=== PATIENT | male | born 1950 | race Caucasian/White ===

== ENCOUNTER 2018-09-28 13:23 | Inpatient (IN) | payer MEDICARE ==
[~2018-09-28] VITALS: Ht 175.3 cm; Wt 79.4 kg
--- NOTE | 2018-09-28 13:29 | ER Report ---
History and Physical Time Seen By MD: 13:29 HPI/ROS CHIEF COMPLAINT: right lower abdominal pain HISTORY OF PRESENT ILLNESS: patient is a 68 year old male presenting to the ED with right lower abdominal pain. Patient states he woke up this morning with the pain in the mid abdomen. Pain is now more focused in the right lower abdomen. Pain is sharp and constant. 9/10 to 10/10. Patient has nausea and had 4 episode of vomiting this morning. Patient went to urgent care and was then sent to the ED. REVIEW OF SYSTEMS: Constitutional: [No fever or chills.] Eyes: [No discharge.] [No vision changes.] ENT: [No sore throat.] [No congestion.] [No hearing changes.] Cardiovascular: [No chest pain.] [No palpitations.] Respiratory: [No cough.] [No shortness of breath.] Gastrointestinal: [No abdominal pain.] [No nausea or vomiting.] [No change in bowel movements.] [No blood in the stool or melena.] Genitourinary: [No dysuria.] [No hematuria.] [No frequency] Musculoskeletal: [No back pain.] [No extremity pain.] Skin: [No rashes.] [No bruising.] Neurological: [No numbness.] [No weakness.] [No headache.] Allergies: Coded Allergies: No Known Drug Allergies (Unverified , 09/28/18) Home Meds Reported Medications Simvastatin (SIMVASTATIN) 20 Mg Tablet, 10 MG PO HS, TAB 09/28/18 Diclofenac Sodium (VOLTAREN-XR) 100 Mg Tab.er.24h, 150 MG PO QDAY, TAB 09/28/18 Past Medical/Surgical History Patient has a past medical history of hypercholesterolemia, arthritis, and back pain. Patient denies any surgical history. Reviewed Nurses Notes: Yes Constitutional Vital Sign - Last 24 Hours 09/28/18 09/28/18 13:28 14:18 Temp 98.1 Pulse 70 Resp 24 B/P (MAP) 145/87 Pulse Ox 98 O2 Delivery Room Air O2 Flow Rate 2.0 Physical Exam General Appearance: The patient is alert. No immediate need for airway protection. Non-toxic in appearance. Patient appears to be in pain. Eyes: Pupils are equal, round. Reactive to light. No pallor, injection or ic terus. ENT: Mucous membranes are moist. Normal oral mucosa. Posterior oropharynx is normal. Normal nasal mucosa. Neck: Supple and non tender. No lymphadenopathy. Respiratory: Breathing easily and unlabored. Lungs are clear to auscultation. There are no retractions or accessory muscle use. Cardiovascular: Regular rate and rhythm. No murmurs, gallops or rubs. Normal capillary refill. No edema. Gastrointestinal: Abdomen is tender to palpation. Postive McBurney's and Rovsing signs. Nondistended. No rebound or guarding. No masses or organomegaly. Normal active bowel sounds. No costovertebral angle tenderness with percussion. Neurological: Alert and oriented x3. Skin: Warm and dry. No rashes. Musculoskeletal: Extremities are nontender. Full range of motion. No tenderness in palpation of the cervical, thoracic and lumbar spine. DIFFERENTIAL DIAGNOSIS: After history and physical exam, differential diagnosis was considered for appendicitis, bowel obstruction, diverticulitis. Medical Decision Making Data Points Result Diagram: 09/28/18 1340 09/28/18 1340 Laboratory Hematology Test 09/28/18 13:40 09/28/18 15:35 Red Blood Count 5.12 M/uL (4.00-5.60) Mean Corpuscular Volume 95.8 fL (80.0-96.0) Mean Corpuscular Hemoglobin 32.7 pg (26.0-33.0) Mean Corpuscular Hemoglobin Concent 34.2 g/dL (32.0-36.0) Red Cell Distribution Width 13.8 % (11.5-14.5) Mean Platelet Volume 9.4 fL (7.2-11.1) Neutrophils (%) (Auto) 90.2 % (39.4-72.5) Lymphocytes (%) (Auto) 6.6 % (17.6-49.6) Monocytes (%) (Auto) 2.9 % (4.1-12.4) Eosinophils (%) (Auto) 0.0 % (0.4-6.7) Basophils (%) (Auto) 0.3 % (0.3-1.4) Nucleated RBC Relative Count (auto) 0.0 /100WBC Neutrophils # (Auto) 11.4 K/uL (2.0-7.4) Lymphocytes # (Auto) 0.8 K/uL (1.3-3.6) Monocytes # (Auto) 0.4 K/uL (0.3-1.0) Eosinophils # (Auto) 0.0 K/uL (0.0-0.5) Basophils # (Auto) 0.0 K/uL (0.0-0.1) Nucleated RBC Absolute Count (auto) 0.00 K/uL Sodium Level 139 mmol/L (137-145) Potassium Level 3.6 mmol/L (3.5-5.0) Chloride Level 102 mmol/L (98-107) Carbon Dioxide Level 22 mmol/L (22-30) Blood Urea Nitrogen 18 mg/dl (9-21) Creatinine 0.80 mg/dl (0.66-1.25) Glomerular Filtration Rate Calc > 60.0 Random Glucose 168 mg/dl (75-110) Calcium Level 9.7 mg/dl (8.4-10.2) Total Bilirubin 1.0 mg/dl (0.2-1.3) Aspartate Amino Transf (AST/SGOT) 35 U/L (0-35) Alanine Aminotransferase (ALT/SGPT) 45 U/L (0-56) Alkaline Phosphatase 67 U/L (0-126) Total Protein 8.1 g/dl (6.3-8.2) Albumin 5.1 g/dl (3.5-5.0) Amylase Level 63 U/L (0-110) Lipase 76 U/L (23-300) Urine Color Yellow Urine Clarity Clear Urine pH 7.0 pH (4.8-9.5) Urine Specific Linneus 1.050 Urine Protein Negative mg/dL (NEGATIVE) Urine Glucose (UA) Negative mg/dL (NEGATIVE) Urine Ketones 20 mg/dL (NEGATIVE) Urine Blood Negative (NEGATIVE) Urine Nitrite Negative (NEGATIVE) Urine Bilirubin Negative (NEGATIVE) Urine Urobilinogen Negative mg/dL (0.2-1.9) Urine Leukocyte Esterase Negative (NEGATIVE) Urine RBC 2 /HPF (0-2/HPF) Urine WBC 1 /HPF (0-5/HPF) Urine Squamous Epithelial Cells None /LPF (</=FEW) Urine Bacteria Negative /HPF (NONE-FEW) Urine Mucus None /HPF (NONE-FEW) Chemistry Test 09/28/18 13:40 09/28/18 15:35 White Blood Count 12.6 k/uL (4.5-11.0) Red Blood Count 5.12 M/uL (4.00-5.60) Hemoglobin 16.7 g/dL (14.0-18.0) Hematocrit 49.0 % (42.0-52.0) Mean Corpuscular Volume 95.8 fL (80.0-96.0) Mean Corpuscular Hemoglobin 32.7 pg (26.0-33.0) Mean Corpuscular Hemoglobin Concent 34.2 g/dL (32.0-36.0) Red Cell Distribution Width 13.8 % (11.5-14.5) Platelet Count 174 K/uL (150-450) Mean Platelet Volume 9.4 fL (7.2-11.1) Neutrophils (%) (Auto) 90.2 % (39.4-72.5) Lymphocytes (%) (Auto) 6.6 % (17.6-49.6) Monocytes (%) (Auto) 2.9 % (4.1-12.4) Eosinophils (%) (Auto) 0.0 % (0.4-6.7) Basophils (%) (Auto) 0.3 % (0.3-1.4) Nucleated RBC Relative Count (auto) 0.0 /100WBC Neutrophils # (Auto) 11.4 K/uL (2.0-7.4) Lymphocytes # (Auto) 0.8 K/uL (1.3-3.6) Monocytes # (Auto) 0.4 K/uL (0.3-1.0) Eosinophils # (Auto) 0.0 K/uL (0.0-0.5) Basophils # (Auto) 0.0 K/uL (0.0-0.1) Nucleated RBC Absolute Count (auto) 0.00 K/uL Glomerular Filtration Rate Calc > 60.0 Calcium Level 9.7 mg/dl (8.4-10.2) Total Bilirubin 1.0 mg/dl (0.2-1.3) Aspartate Amino Transf (AST/SGOT) 35 U/L (0-35) Alanine Aminotransferase (ALT/SGPT) 45 U/L (0-56) Alkaline Phosphatase 67 U/L (0-126) Total Protein 8.1 g/dl (6.3-8.2) Albumin 5.1 g/dl (3.5-5.0) Amylase Level 63 U/L (0-110) Lipase 76 U/L (23-300) Urine Color Yellow Urine Clarity Clear Urine pH 7.0 pH (4.8-9.5) Urine Specific Linneus 1.050 Urine Protein Negative mg/dL (NEGATIVE) Urine Glucose (UA) Negative mg/dL (NEGATIVE) Urine Ketones 20 mg/dL (NEGATIVE) Urine Blood Negative (NEGATIVE) Urine Nitrite Negative (NEGATIVE) Urine Bilirubin Negative (NEGATIVE) Urine Urobilinogen Negative mg/dL (0.2-1.9) Urine Leukocyte Esterase Negative (NEGATIVE) Urine RBC 2 /HPF (0-2/HPF) Urine WBC 1 /HPF (0-5/HPF) Urine Squamous Epithelial Cells None /LPF (</=FEW) Urine Bacteria Negative /HPF (NONE-FEW) Urine Mucus None /HPF (NONE-FEW) Urinalysis Test 09/28/18 15:35 Urine Color Yellow Urine Clarity Clear Urine pH 7.0 pH (4.8-9.5) Urine Specific Linneus 1.050 Urine Protein Negative mg/dL (NEGATIVE) Urine Glucose (UA) Negative mg/dL (NEGATIVE) Urine Ketones 20 mg/dL (NEGATIVE) Urine Blood Negative (NEGATIVE) Urine Nitrite Negative (NEGATIVE) Urine Bilirubin Negative (NEGATIVE) Urine Urobilinogen Negative mg/dL (0.2-1.9) Urine Leukocyte Esterase Negative (NEGATIVE) Urine RBC 2 /HPF (0-2/HPF) Urine WBC 1 /HPF (0-5/HPF) Urine Squamous Epithelial Cells None /LPF (</=FEW) Urine Bacteria Negative /HPF (NONE-FEW) Urine Mucus None /HPF (NONE-FEW) EKG/Imaging Imaging Computed tomograpy abdomen and pelvis with IV contrast Indication: Abdominal pain. Right lower quadrant and periumbilical pain. Comparison: None available. . Technique: Transaxial computed tomography images were obtained through the abdomen and pelvis following the injection of nonionic iodinated intravenous contrast. Reformatted coronal and sagittal images were also obtained. One of the following dose optimization techniques was utilized in the performance of this exam: Automated exposure control; adjustment of the mA and/or kV according to the patient's size; or use of an iterative re construction technique. Specific details can be referenced in the facility's radiology CT exam operational policy. Contrast: 75 ml of Isovue-370 IV contrast. Findings: Lower lung whitman: Minimal atelectasis involves both lower lobes. Peripheral septal line thickening is seen which may reflect a component of chronic scarring or interstitial lung disease. Small peripheral nodule in the right middle lobe measures 4-5 mm in size on image 4. Liver: No focal parenchymal abnormality of the liver. Biliary: Gallbladder appears unremarkable as well as the intra and extra hepatic biliary system. Pancreas: Normal appearance. Spleen: Normal appearance. Adrenal glands: There is thickening of the right adrenal gland which maintains its adreniform shape. There is thickening of the left adrenal gland with a suspected nodule at the junction of the medial and lateral limbs which measures 1.3 cm. Kidneys / retroperitoneum: There are small left-sided renal cysts identified. Small exophytic low-attenuation lesion involves the right kidney which statistically represents a small cyst. No stones or hydronephrosis. Bowel / peritoneum / mesenteries: There are scattered sigmoid colon and descending colon diverticula. No evidence of diverticulitis. There are a few right-sided diverticula as well. Appendix is normal. Within the central pelvis and the low abdomen, there are are multiple continuous dilated small bowel loops. These are arranged in a C-shaped pattern and there is swirling within the mesentery centrally. 2 transition points are identified. Findings are highly suspicious for a closed loop obstruction either due to adhesions or due to an internal hernia. Surgical consultation is necessary. No evidence of pneumatosis or free air. There is a small amount of free pelvic fluid. There is an intermediate hiatal hernia. Lymph node assessment: No pathologic adenopathy identified. Pelvic structures: Mild prostatic enlargement. Vessels: Moderately diffuse atherosclerotic calcifications seen throughout a nonaneurysmal abdominal aorta and branches. Musculoskeletal / Body wall: Moderate to severe multilevel degenerative disc disease involves the spine. There is bilateral hip joint osteoarthritis. There are findings consistent with prior right inguinal hernia repair. IMPRESSION: 1. CT findings highly suspicious for a closed loop small bowel obstruction within the central pelvis as detailed above. This could reflect adhesions or an internal hernia. Surgical consultation is necessary. 2. No evidence of pneumatosis or free air. There is a small amount of free pe lvic fluid. 3. Colonic diverticulosis without diverticulitis. 4. 13 mm indeterminate left adrenal gland nodule. 5. Findings most consistent with renal cysts. 6. Hiatal hernia. 7. Peripheral 4-5 mm right middle lobe nodule. Follow-up recommendations as discussed below. FLEISCHNER SOCIETY FOLLOW-UP GUIDELINES FOR NEWLY DETECTED INCIDENTAL NODULES IN PERSONS 35 YEARS OF AGE OR OLDER. *These recommendations do NOT apply to lung cancer screening, patients with immunosuppres ion or patients with a known primary malignancy. NODULE(S) IDENTIFIED ON INCOMPLETE CHEST If nodule size is < 6 mm: * No further investigation on the basis of the estimated low risk of malignancy.If nodule size is 6-8 mm: * Follow-up CT of the complete chest after 3-12 months (depending on clinical risk), to confirm stability and to evaluate additional findings. If nodule size is > 8 mm or otherwise very suspicious: * Dedicated complete thoracic CT recommended. LOW RISK PATIENT: Minimal or absent history of tobacco use and of other known risk factors. HIGH RISK PATIENT: Tobacco use, family history of lung cancer, upper pulmonary lobe location of nodule, presence of emphysema, pulmonary fibrosis, older age. Jose Martin H, Neville DP, Remi JM, et al. Guidelines for Management of Incidental Pulmonary Nodules Detected on CT Images: From the Fleischner Society 2017. Radiology. Results were discussed with SHANNAN COULTER at 09/28/2018 3:38 PM. Report Dictated By: Eleuterio Abrams at 09/28/2018 3:19 PM ED Course/Re-evaluation Clinical Indication for ER IV: Hydration, IV Access ED Course After initial evaluation, blood work, urinalysis and CT scan ordered. Given Dilaudid 0.5mg IV and Zofran 4mg IV. Moderate pain relief, repeated Dilaudid 0.5mg IV. CT scan obtained. See above, shows closed loop small bowel obstruction. Reviewed findings with the patient and his . Discussed with Dr. Rodriguez who came to see the patient and admitted with plans for surgery. Decision to Disposition Date: Sep 28, 2018 Decision to Disposition Time: 16:05 Depart Departure Latest Vital Signs Vital Signs Date Time Temp Pulse Resp B/P (MAP) Pulse Ox O2 Delivery O2 Flow Rate FiO2 09/28/18 14:18 2.0 09/28/18 13:28 98.1 70 24 145/87 98 Room Air Impression: Primary Impression: Small bowel obstruction Condition: Condition Unchanged Disposition: Admitted from ER YFN,SHANNAN Dickinson MD Sep 28, 2018 13:29
[2018-09-28] MEDS ORDERED: DICL100T54 PO (13:32)
[2018-09-28] MEDS ORDERED: SIMV-49 PO (13:32)
[2018-09-28] MEDS ORDERED: ONDANSETRON 4 MG/2 ML VIAL IVP ONE (13:50)
[2018-09-28] MEDS ORDERED: NS(*) 0.9% 1000 ML BAG 1,000 ML IV ONE (13:50)
[2018-09-28] MEDS ORDERED: HYDROMORPHONE HCL 1 MG/ML SYRINGE IVP ONE ×3 (13:50→19:20)
[2018-09-28 14:00] LABS: PLATELET COUNT, AUTOMATED 174 K/uL (150-450)
[2018-09-28] MEDS ORDERED: HYDROMORPHONE HCL 1 MG/ML SYRINGE ONE (14:05)
[2018-09-28] MEDS ORDERED: IOPAMIDOL 76% 150 ML INFUS BTL 150 ML ONE (14:16)
--- NOTE | 2018-09-28 15:45 | RADIOLOGY IMAGING REPORT ---
FACILITY: [facility] [place] PATIENT NAME: Tim Young : 1950 MR: [id number] V: [id number] EXAM DATE: ORDERING PHYSICIAN: SHANNAN COULTER TECHNOLOGIST: [place] [facility] [place]: Tim Young : 1950 Visit/Account:[id number] Date of Sevice: 09/28/2018 Computed tomograpy abdomen and pelvis with IV contrast Indication: Abdominal pain. Right lower quadrant and periumbilical pain. Comparison: None available. . Technique: Transaxial computed tomography images were obtained through the abdomen and pelvis follo wing the injection of nonionic iodinated intravenous contrast. Reformatted coronal and sagittal image s were also obtained. One of the following dose optimization techniques was utilized in the performance of this exam: Autom ated exposure control; adjustment of the mA and/or kV according to the patient's size; or use of an i terative reconstruction technique. Specific details can be referenced in the facility's radiology C T exam operational policy. Contrast: 75 ml of Isovue-370 IV contrast. Findings: Lower lung whitman: Minimal atelectasis involves both lower lobes. Peripheral septal line thickening i s seen which may reflect a component of chronic scarring or interstitial lung disease. Small peripher al nodule in the right middle lobe measures 4-5 mm in size on image 4. Liver: No focal parenchymal abnormality of the liver. Biliary: Gallbladder appears unremarkable as well as the intra and extra hepatic biliary system. Pancreas: Normal appearance. Spleen: Normal appearance. Adrenal glands: There is thickening of the right adrenal gland which maintains its adreniform shape. There is thickening of the left adrenal gland with a suspected nodule at the junction of the medial a nd lateral limbs which measures 1.3 cm. Kidneys / retroperitoneum: There are small left-sided renal cysts identified. Small exophytic low-att enuation lesion involves the right kidney which statistically represents a small cyst. No stones or h ydronephrosis. Bowel / peritoneum / mesenteries: There are scattered sigmoid colon and descending colon diverticula. No evidence of diverticulitis. There are a few right-sided diverticula as well. Appendix is normal. Within the central pelvis and the low abdomen, there are are multiple continuous dilated small bowel loops. These are arranged in a C-shaped pattern and there is swirling within the mesentery centrally. 2 transition points are identified. Findings are highly suspicious for a closed loop obstruction eit her due to adhesions or due to an internal hernia. Surgical consultation is necessary. No evidence of pneumatosis or free air. There is a small amount of free pelvic fluid. There is an intermediate hiatal hernia. Lymph node assessment: No pathologic adenopathy identified. Pelvic structures: Mild prostatic enlargement. Vessels: Moderately diffuse atherosclerotic calcifications seen throughout a nonaneurysmal abdominal aorta and branches. Musculoskeletal / Body wall: Moderate to severe multilevel degenerative disc disease involves the spi ne. There is bilateral hip joint osteoarthritis. There are findings consistent with prior right inguinal hernia repair. IMPRESSION: 1. CT findings highly suspicious for a closed loop small bowel obstruction within the central pelvis as detailed above. This could reflect adhesions or an internal hernia. Surgical consultation is thai brumfield. 2. No evidence of pneumatosis or free air. There is a small amount of free pelvic fluid. 3. Colonic diverticulosis without diverticulitis. 4. 13 mm indeterminate left adrenal gland nodule. 5. Findings most consistent with renal cysts. 6. Hiatal hernia. 7. Peripheral 4-5 mm right middle lobe nodule. Follow-up recommendations as discussed below. FLEISCHNER SOCIETY FOLLOW-UP GUIDELINES FOR NEWLY DETECTED INCIDENTAL NODULES IN PERSONS 35 YEARS OF AGE OR OLDER. *These recommendations do NOT apply to lung cancer screening, patients with immunosuppres ion or veronica ents with a known primary malignancy. NODULE(S) IDENTIFIED ON INCOMPLETE CHEST If nodule size is < 6 mm: * No further investigation on the basis of the estimated low risk of malignancy.If nodule size is 6- 8 mm: * Follow-up CT of the complete chest after 3-12 months (depending on clinical risk), to confirm stab ility and to evaluate additional findings. If nodule size is > 8 mm or otherwise very suspicious: * Dedicated complete thoracic CT recommended. LOW RISK PATIENT: Minimal or absent history of tobacco use and of other known risk factors. HIGH RISK PATIENT: Tobacco use, family history of lung cancer, upper pulmonary lobe location of nodul e, presence of emphysema, pulmonary fibrosis, older age. Jose Martin H, Neville DP, Remi JM, et al. Guidelines for Management of Incidental Pulmonary Nodules Dete cted on CT Images: From the Fleischner Society 2017. Radiology. [facility] Results were discussed with SHANNAN COULTER at 09/28/2018 3:38 PM. Report Dictated By: Eleuterio Abrams at 09/28/2018 3:19 PM Report E-Signed By: Eleuterio Abrams at 09/28/2018 3:38 PM WSN:[id number]
--- NOTE | 2018-09-28 16:57 | Gen Surgery History & Physical ---
History of Present Illness Chief Complaint abdominal pain History of Present Illness 68 yo male sent from due to acute onset of severe, diffuse, constant 10/10 abdominal pain associated with +NV. No prior similar s/s. No hx PUD, IBD, hepatobiliary dz, diverticular dz. Pain is exacerbated with movement. No relieving factors. No fevers, no s/s. Prior BIH repairs in the remote past. History Unable To Obtain Past Medical: Home Meds Reported Medications Simvastatin (SIMVASTATIN) 20 Mg Tablet, 10 MG PO HS, TAB 09/28/18 Diclofenac Sodium (VOLTAREN-XR) 100 Mg Tab.er.24h, 150 MG PO QDAY, TAB 09/28/18 Allergies: Coded Allergies: No Known Drug Allergies (Unverified , 09/28/18) Review of Systems All Systems Reviewed/Normal: Yes, Except as Noted Gastrointestinal: Other (see HPI) Exam General Appearance: Alert, Awake, No Acute Distress, Afebrile Neuro: No Gross deficits Cardiovascular: Normal Rhythm & Peripheral Pulses, Regular Rate and Rhythm, No Edema, No JVD Respiratory: No Respiratory Distress, Clear to Auscultation GI: Other (firm, mildly distended with diffuse pain with ++ guarding R>L. No bowel sounds. BIH scars without obvious recurrent hernia) Musculoskeletal: No Weakness/Pain Extremities: Warm, Pulses, Perfused Integumentary: Skin Intact without Lesion / Mass Psych: Alert & Oriented X3, Appropriate Mood & Affect Medical Decision Making Data Points Result Diagram: 09/28/18 1340 09/28/18 1340 EKG / Imaging Monitor Interpretation: Normal Sinus Rhythm Pre-Admit Course Medical Record Review: Yes Assessment and Plan Problems: (1) Abdominal pain Status: Acute Assessment & Plan: 68 yo male with concerning clinical exam and ABD CT scan consistent with closed loop obstruction vs internal hernia. The bowel appears edematous, distended and thickened with free fluid in the pelvis, concerning for ischemia. He has been recommended to undergo emergent exploratory laparotomy with possible bowel resection. The procedure, risks, benefits, alternative treatment discussed at length with the pt and his at the bedside. They understand risk of bleeding, leak, abscess, damage to viscera, cardiopulm complication, need for additional surgery, remote possibility of an ostomy, and/or negative exploration. All questions answered. Informed consent signed. Critical Time Spent: 1st 30-74 Minutes Venous Thromboembolism VTE Risk Physician Assess for VTE Risk: Yes Patient's VTE Risk: Low VTE Diagnostic Test 2 Days Prior to Admit: No Antithrombotics Is Pt On Any Antithrombotics?: No ABHIJEET TOUSSAINT MD Sep 28, 2018 16:57
[2018-09-28] MEDS ORDERED: PIPERACILLIN/TAZO*3.375GM VIAL 3.375 GM in NS(*) 0.9% 100 ML ADDVANT BAG 100 ML IVPB ONE (17:00)
[2018-09-28] MEDS ORDERED: LR(*) 1000 ML BAG 1,000 ML ONE (17:29)
[2018-09-28] MEDS ORDERED: ONDANSETRON 4 MG/2 ML VIAL ONE (18:40)
[2018-09-28] MEDS ORDERED: PROPOFOL EMUL(*) 10MG/ML 20 ML 20 ML ONE (18:40)
[2018-09-28] MEDS ORDERED: LIDOCAINE MPF 1% 5 ML VIAL ONE ×2 (18:40→21:39)
[2018-09-28] MEDS ORDERED: fentaNYL CITR 100 MCG/2 ML AMP ONE ×4 (18:40→23:52)
[2018-09-28] MEDS ORDERED: ACETAMINOPHEN 325 MG TAB PO PRN (21:10)
[2018-09-28] MEDS ORDERED: MORPHINE 1 MG/ML 30 ML PCA IV PRN (21:10)
[2018-09-28] MEDS ORDERED: NALOXONE HCL 0.4 MG/ML VIAL IVP PRN (21:10)
[2018-09-28] MEDS ORDERED: KETAMINE HCL 200 MG/20 ML MDV ONE (21:49)
[2018-09-28] MEDS ORDERED: ePHEDrine 25 MG/5 ML DISP.SYR IVP ONE (21:50)
[2018-09-28] MEDS ORDERED: DEXAMETHASONE SOD 4 MG/ML VIAL ONE (21:58)
[2018-09-28] MEDS ORDERED: ACETAMINOPHEN(*)1000 MG/100 ML 100 ML IVPB ONE (22:09)
[2018-09-28] MEDS ORDERED: SUGAMMADEX SOD 200 MG/2 ML SDV ONE (22:27)
--- NOTE | 2018-09-28 23:59 | Post Operative Progress Note ---
Post Operative Progress Note Date: Sep 28, 2018 Time: 23:58 Surgeon: Abhijeet Rodriguez MD Sql Tech: none Anesthesia: GETA Pre-Op Diagnosis: ischemic bowel secondary to closed loop obstruction Post-Op Diagnosis: same Findings: ischemic jejunum 30 cm Procedure(s): exp lap with resection small bowel resection Specimen Removed:(May be N/A): jejunum Complications: none Total Tourniquet Time: NA Splint: NA Fluids: 1700 LR Estimated Blood Loss: < 50 ml Date OP Note Dictated: Sep 28, 2018 Time OP Note Dictated: 23:59 (Dictation # [id number]) ABHIJEET RODRIGUEZ MD Sep 28, 2018 23:59
[2018-09-29] VITALS (16 sets, daily range): BP systolic 124–151; BP diastolic 82–107; BMI 25.8
[2018-09-29] MEDS ORDERED: fentaNYL CITR 100 MCG/2 ML AMP ONE (00:07)
[2018-09-29] MEDS ORDERED: HYDROmorphone HCL 2 MG/ML SDV ONE (00:08)
[2018-09-29] MEDS ORDERED: NORMOSOL R SOLN(*) 1000 ML BAG 1,000 ML IV ONE (00:46)
[2018-09-29] MEDS ORDERED: PCA LOCKBOX KEYS XX ONE (01:40)
[2018-09-29] MEDS: KCL/D1/2NS 20 MEQ 1000 ML 1,000 ML IV PRN ×3 (02:02→19:03)
--- NOTE | 2018-09-29 05:02 | OPERATIVE REPORT 1 ---
EVENT DATE: September 28, 2018 SURGEON: Kiana Rodriguez MD ANESTHESIOLOGIST: Seema Ludwig MD ANESTHESIA: General endotracheal anesthesia. PREOPERATIVE DIAGNOSIS Ischemic bowel secondary to closed loop obstruction. POSTOPERATIVE DIAGNOSIS Ischemic bowel secondary to closed loop obstruction. PROCEDURE PERFORMED 1. Exploratory laparotomy. 2. Reduction of closed loop obstruction. 3. Small bowel resection. WOUND CLASS: III INDICATIONS FOR OPERATION This patient is a 68-year-old male with clinical and radiographic evidence of closed loop obstruction on CT scan. He is brought to the operating room emergently at this time for exploration. FINDINGS AT TIME OF OPERATION The patient had several hundred milliliters of bloody ascitic fluid. He had an ischemic loop of jejunum measuring approximately 30 cm in length secondary to closed loop obstruction. No other gross abnormality was noted upon manual exploration. DETAILS OF OPERATION On 09/28/2018, patient was brought to the operating room and placed in the supine position. Appropriate lines and monitors were placed. Patient was induced and intubated under general anesthesia without difficulty. He was then prepped and draped in the usual sterile manner. A midline incision was made in the standard fashion. Skin and subcutaneous tissues were divided using sharp dissection. The fascia was opened along its midline using electrocautery. Peritoneum was entered in the standard fashion using sharp dissection. Immediately upon opening the abdomen, the ischemic loop of bowel was identified. This was torsed and adhesed in the central mid pelvis. The cause of the closed loop obstruction appeared to be an internal hernia within the mesentery of the small bowel. Once this was reduced, the bowel was ischemic with significant infarction and hematoma of the mesentery. The bowel was divided proximally and distally above this point using the JEAN stapling device. The mesentery was taken down between alternating clamps, excised and ligated. A [id number]-bq-[id number]/functional end-to-end anastomosis was then completed using the JEAN stapler. The enterotomy was closed in double layer with 3-0 Vicryl and 3-0 silk Lembert sutures. The anastomosis was viable, without any undue tension. The mesenteric defect was closed with simple interrupted 3-0 Vicryls. The wound cavity was irrigated copiously with sterile saline. There was no other abnormality. The NG tube position was confirmed. The fascia was closed with a running #1 PDS suture. The wound was then dressed with dry sterile gauze. The patient tolerated the procedure well. Estimated blood loss less than 50 mL. Final sponge and needle counts reported correct x2. Specimen was midjejunum. Intraoperatively, he received 1700 mL of crystalloid. Urine output 125. He was then extubated and taken to recovery room in stable condition. ROBERTO
[2018-09-29] MEDS: ONDANSETRON 4 MG/2 ML VIAL IVP PRN ×3 (05:49→17:35)
[2018-09-29 06:22] LABS: PLATELET COUNT, AUTOMATED 146 K/uL (150-450)
[2018-09-29] MEDS ORDERED: ACETAMINOPHEN(*)1000 MG/100 ML 100 ML IVPB ONE (07:50)
[2018-09-29] MEDS: PANTOPRAZOLE SOD 40 MG IV VIAL IVP SCH (07:58)
--- NOTE | 2018-09-29 10:37 | General Surgery Progress Note ---
Subjective Progress Notes Subjective s/p ex lap, sbr. doing well. has inc pain. Physical Exam Vital Signs Date Time Temp Pulse Resp B/P (MAP) Pulse Ox O2 Delivery O2 Flow Rate FiO2 09/29/18 08:07 92 Nasal Cannula 3.0 09/29/18 08:07 24 09/29/18 08:00 109 132/99 (110) 09/29/18 07:33 97.8 Intake and Output 09/29/18 06:59 Intake Total 3000 ml Output Total 1025 ml Balance 1975 ml Intake IV Total 3000 ml Output Urine Total 775 ml Gastric Drainage Total 100 ml Estimated Blood Loss 50 ml Other 100 ml General Appearance: No Acute Distress GI: Other (abd soft, ngt) : Other (harvey ) Result Diagram: 09/29/1851209/29/18512 Monitor Interpretation: Normal Sinus Rhythm Assessment and Plan Problems: (1) Abdominal pain Status: Acute Assessment & Plan: 68 yo male with concerning clinical exam and ABD CT scan consistent with closed loop obstruction vs internal hernia. The bowel appears edematous, distended and thickened with free fluid in the pelvis, concerning for ischemia. He has been recommended to undergo emergent exploratory laparotomy with possible bowel resection. The procedure, risks, benefits, alternative treatment discussed at length with the pt and his at the bedside. They understand risk of bleeding, leak, abscess, damage to viscera, cardiopulm complication, need for additional surgery, remote possibility of an ostomy, a nd/or negative exploration. All questions answered. Informed consent signed. 09/29/18: doing well. will remove harvey today. ngt out soon. ice chips. ambulate. lovenox. Exam Sepsis Risk: Sepsis Risk KRISSY SAMUELS Sep 29, 2018 10:37
[2018-09-29] MEDS ORDERED: SUMA50TA34 PO (14:27)
[2018-09-29] MEDS ORDERED: SUMAtriptan SUCC 25MG TAB PO ONE (14:55)
[2018-09-29] MEDS ORDERED: PROMETHAZINE 25 MG/ML 1 ML AMP IVP PRN (18:35)
[2018-09-29] MEDS: ENOXAPARIN 40 MG/0.4ML SYR SC SCH (20:23)
[2018-09-29] MEDS ORDERED: HYDROmorphone HCL 2 MG/ML SDV IVP PRN (21:30)
[2018-09-30] MEDS: APAP/HYDROCODONE 325/7.5 TAB PO PRN ×3 (00:38→21:45)
[2018-09-30 03:28] VITALS: BP 145/98
[2018-09-30] MEDS: KCL/D1/2NS 20 MEQ 1000 ML 1,000 ML IV PRN ×3 (04:06→21:50)
[2018-09-30 05:39] LABS: PLATELET COUNT, AUTOMATED 136 K/uL (150-450)
[2018-09-30 07:05] VITALS: BP 144/95
[2018-09-30] MEDS ORDERED: SUMAtriptan SUCC 25MG TAB PO ONE (07:10)
--- NOTE | 2018-09-30 07:29 | General Surgery Progress Note ---
Subjective Progress Notes Subjective abd pain controlled. no n/v. no flatus or bm. headache. Physical Exam Vital Signs Date Time Temp Pulse Resp B/P (MAP) Pulse Ox O2 Delivery O2 Flow Rate FiO2 09/30/18 07:05 98.3 102 16 144/95 (111) 92 Nasal Cannula 1.0 Intake and Output 09/30/18 07:00 Intake Total 2080 ml Output Total 1675 ml Balance 405 ml Intake Oral 20 ml IV Total 2060 ml Output Urine Total 1525 ml Gastric Drainage Total 150 ml # Voids 2 General Appearance: No Acute Distress Cardiovascular: Other (reg rate) GI: Other (abd soft) Result Diagram: 09/30/1851209/30/18512 Monitor Interpretation: Normal Sinus Rhythm Assessment and Plan Problems: (1) Abdominal pain Status: Acute Assessment & Plan: 68 yo male with concerning clinical exam and ABD CT scan consistent with closed loop obstruction vs internal hernia. The bowel appears edematous, distended and thickened with free fluid in the pelvis, concerning for ischemia. He has been recommended to undergo emergent exploratory laparotomy with possible bowel resection. The procedure, risks, benefits, alternative treatment discussed at length with the pt and his at the bedside. They understand risk of bleeding, leak, abscess, damage to viscera, cardiopulm complication, need for additional surgery, remote possibility of an ostomy, and/or negative exploration. All questions answered. Informed consent signed. 09/29/18: doing well. will remove harvey today. ngt out soon. ice chips. ambulate. lovenox. 09/30/18: doing fine. clears. ambulate. imitrex for headache. Exam Sepsis Risk: Sepsis Risk KRISSY SAMUELS Sep 30, 2018 07:29
[2018-09-30] MEDS: PANTOPRAZOLE SOD 40 MG IV VIAL IVP SCH (08:46)
[2018-09-30 11:40] VITALS: BP 148/99
[2018-09-30] MEDS ORDERED: KETOROLAC 30 MG/ML VIAL IVP ONE (13:30)
[2018-09-30 14:43] VITALS: BP 139/91
[2018-09-30 20:16] VITALS: BP 150/95
[2018-09-30] MEDS: ENOXAPARIN 40 MG/0.4ML SYR SC SCH (20:26)
[2018-09-30 23:49] VITALS: BP 139/86
[2018-10-01 02:35] VITALS: BP 138/91
[2018-10-01] MEDS: ONDANSETRON 4 MG/2 ML VIAL IVP PRN (05:51)
[2018-10-01] MEDS: KCL/D1/2NS 20 MEQ 1000 ML 1,000 ML IV PRN ×2 (05:51→17:40)
--- NOTE | 2018-10-01 05:59 | RADIOLOGY IMAGING REPORT ---
FACILITY: [facility] PATIENT NAME: Tim Young : 1950 MR: [id number] V: [id number] EXAM DATE: [id number] ORDERING PHYSICIAN: KRISSY SAMUELS TECHNOLOGIST: [facility] Patient: Tim Young : 1950 Visit/Account:[id number] Date of Sevice: 10/01/2018 INDICATION: ileus EXAM DATE: 10/01/2018 5:00 AM COMPARISON: CT abdomen and pelvis 09/28/2018. FINDINGS: Single supine AP images of the abdomen. The lungs are well-expanded and clear. No pleural effusion or pneumothorax. Heart size is normal. Bowel gas pattern is nonobstructive. No pneumatosis, pneumoperitoneum or portal venous gas. No eviden ce of large volume ascites or mass. Midline cutaneous radha are new since the prior examination. Multiple surgical clips over the righ t inguinal region are unchanged. No acute osseous abnormality. IMPRESSION: No evidence of acute bowel pathology. Report Dictated By: Jacques El MD at 10/01/2018 5:50 AM Report E-Signed By: Jacques El MD at 10/01/2018 5:55 AM WSN:[id number]
[2018-10-01 06:56] VITALS: BP 137/95
--- NOTE | 2018-10-01 07:17 | General Surgery Progress Note ---
Subjective Progress Notes Subjective headache. +flatus. Physical Exam Vital Signs Date Time Temp Pulse Resp B/P (MAP) Pulse Ox O2 Delivery O2 Flow Rate FiO2 10/01/18 06:56 111 20 137/95 (109) 89 Room Air 10/01/18 02:35 98.9 1.0 Intake and Output 10/01/18 07:00 Intake Total 3343 ml Output Total 250 ml Balance 3093 ml Intake Oral 350 ml IV Total 2993 ml Output Urine Total 250 ml # Voids 5 Cardiovascular: Other (mildly tachycardic) GI: Other (abd soft, inc c/d/i) Result Diagram: 09/30/1851209/30/18512 Monitor Interpretation: Normal Sinus Rhythm Assessment and Plan Problems: (1) Abdominal pain Status: Acute Assessment & Plan: 68 yo male with concerning clinical exam and ABD CT scan consistent with closed loop obstruction vs internal hernia. The bowel appears edematous, distended and thickened with free fluid in the pelvis, concerning for ischemia. He has been recommended to undergo emergent exploratory laparotomy with possible bowel resection. The procedure, risks, benefits, alternative treatment discussed at length with the pt and his at the bedside. They understand risk of bleeding, leak, abscess, damage to viscera, cardiopulm complication, need for additional surgery, remote possibility of an ostomy, and/or negative exploration. All questions answered. Informed consent signed. 09/29/18: doing well. will remove harvey today. ngt out soon. ice chips. ambulate. lovenox. 09/30/18: doing fine. clears. ambulate. imitrex for headache. 10/01/18: doing well. full liquid diet. add toradol. ambulate. Exam Sepsis Risk: No Definite Risk KRISSY SAMUELS Oct 01, 2018 07:17
[2018-10-01] MEDS ORDERED: KETOROLAC 30 MG/ML VIAL IVP PRN (07:20)
[2018-10-01] MEDS ORDERED: KETOROLAC 15 MG/ML VIAL IVP PRN (07:55)
[2018-10-01] MEDS: PANTOPRAZOLE SOD 40 MG IV VIAL IVP SCH (08:42)
[2018-10-01 09:18] VITALS: BMI 25.8
[2018-10-01 14:47] VITALS: Ht 175.3 cm; Wt 79.4 kg
[2018-10-01 14:55] VITALS: BP 139/95
[2018-10-01 19:48] VITALS: BP 135/91
[2018-10-01] MEDS: ENOXAPARIN 40 MG/0.4ML SYR SC SCH (20:38)
[2018-10-01] MEDS ORDERED: KCL/D1/2NS 20 MEQ 1000 ML 1,000 ML IV PRN (22:04)
[2018-10-01 22:37] VITALS: BP 145/105
[2018-10-02 03:24] VITALS: BP 138/96
[2018-10-02 06:59] VITALS: BP 134/90
[2018-10-02] MEDS: PANTOPRAZOLE SOD 40 MG IV VIAL IVP SCH (08:37)
[2018-10-02 11:33] VITALS: BP 123/91
--- NOTE | 2018-10-02 11:37 | General Surgery Progress Note ---
Subjective Progress Notes Subjective doing well. minimal pain. +bm. traci po. Physical Exam Vital Signs Date Time Temp Pulse Resp B/P (MAP) Pulse Ox O2 Delivery O2 Flow Rate FiO2 10/02/18 11:33 78 20 123/91 (102) 95 Room Air 10/02/18 06:59 97.7 1.0 Intake and Output 10/02/18 07:00 Intake Total 3250 ml Output Total 800 ml Balance 2450 ml Intake Oral 1132 ml IV Total 2118 ml Output Urine Total 800 ml # Voids 3 General Appearance: No Acute Distress GI: Other (abd soft) Result Diagram: 09/30/1851209/30/18512 Monitor Interpretation: Normal Sinus Rhythm Assessment and Plan Problems: (1) Abdominal pain Status: Acute Assessment & Plan: 68 yo male with concerning clinical exam and ABD CT scan consistent with closed loop obstruction vs internal hernia. The bowel appears edematous, distended and thickened with free fluid in the pelvis, concerning for ischemia. He has been recommended to undergo emergent exploratory laparotomy with possible bowel resection. The procedure, risks, benefits, alternative treatment discussed at length with the pt and his at the bedside. They understand risk of bleeding, leak, abscess, damage to viscera, cardiopulm complication, need for additional surgery, remote possibility of an ostomy, and/or negative exploration. All questions answered. Informed consent signed. 09/29/18: doing well. will remove harvey today. ngt out soon. ice chips. ambulate. lovenox. 09/30/18: doing fine. clears. ambulate. imitrex for headache. 10/01/18: doing well. full liquid diet. add toradol. ambulate. 10/02/18: doing well. +bm. minimal pain. d/c home if tolerates lunch. Exam Sepsis Risk: No Definite Risk KRISSY SAMUELS Oct 02, 2018 11:37
[2018-10-02] MEDS ORDERED: TRAM-420 PO (11:44)
--- NOTE | 2018-10-07 15:01 | Hospitalist Depart ---
Discharge Summary Reason for Hosp/Final Diag: (1) Abdominal pain Status: Acute Hospital Course & Plan: 68 yo male with concerning clinical exam and ABD CT scan consistent with closed loop obstruction vs internal hernia. The bowel appears edematous, distended and thickened with free fluid in the pelvis, concerning for ischemia. He has been recommended to undergo emergent exploratory laparotomy with possible bowel resection. The procedure, risks, benefits, alternative treatment discussed at length with the pt and his at the bedside. They understand risk of bleeding, leak, abscess, damage to viscera, cardiopulm complication, need for additional surgery, remote possibility of an ostomy, and/or negative exploration. All questions answered. Informed consent signed. 09/29/18: doing well. will remove harvey today. ngt out soon. ice chips. ambulate. lovenox. 09/30/18: doing fine. clears. ambulate. imitrex for headache. 10/01/18: doing well. full liquid diet. add toradol. ambulate. 10/02/18: doing well. +bm. minimal pain. d/c home if tolerates lunch. Departure Weight (Pounds): 175 Condition: Improved Discharge Instructions Home Meds Active Scripts Tramadol Hcl (TRAMADOL HCL) 50 Mg Tablet, 50 MG PO Q4H PRN for PAIN, #30 TAB Prov:KRISSY FULLER 10/02/18 Reported Medications Sumatriptan Succinate (IMITREX) 50 Mg Tablet, 50 MG PO ONCE PRN for headache 09/29/18 Simvastatin (SIMVASTATIN) 20 Mg Tablet, 10 MG PO HS, TAB 09/28/18 Diclofenac Sodium (VOLTAREN-XR) 100 Mg Tab.er.24h, 150 MG PO QDAY, TAB 09/28/18 Diet: Mechanical Soft Activity: As Tolerated, No Heavy Lifting Special Instructions: Continue your home medications. Take stool softeners while taking narcotics. Call Dr. Fuller's office to schedule a follow up appointment in 2 weeks. No lifting greater than 15 pounds for [address] Fuller's office: [phone] Venous Thromboembolism Antithrombotics Is Pt On Any Antithrombotics?: KRISSY Carmen Oct 07, 2018 15:01
== END 2018-10-02 13:45 | disposition home or self-care (01) | DRG 329 ==
LOC: ER 13:31 → OR 16:27 → MED 09-29 01:25
PROVIDERS: ADMIT Surgery; ATTEND Surgery
PROC: 0DBA0ZZ Excision of Jejunum, Open Approach (ICD-10-PCS; principal; 2018-09-29)
PROC: 0D9670Z Drainage of Stomach with Drainage Device, Via Natural or Artificial Opening (ICD-10-PCS; 2018-09-29)
DX: K46.0 Unspecified abdominal hernia with obstruction, without gangrene (principal); K55.011 Focal (segmental) acute (reversible) ischemia of small intestine; E78.00 Pure hypercholesterolemia, unspecified
CPT/HCPCS: 36415; 74018; 74177; 81001; 82040; 82150; 82247; 82310; 82374; 82435; 82565; 82947; 83690; 84075; 84132; 84155; 84295; 84450; 84460; 84520; 85025; 86140; 88307; 96361; 96374; 96375; 96376; 99285; C9113; J0131; J1100; J1170; J1650; J1885; J2001; J2270; J2405; J2543; J2704; J3010; J3480; J3490; J7030; J7050; Q9967